=== PATIENT | male | born 1970 | race Two or more races ===

== ENCOUNTER 2017-09-17 13:34 | Outpatient (CLI) | END 2017-09-17 13:35 | disposition home or self-care (01) | LOC: LAB 13:34 | PROVIDERS: ATTEND Emergency Medicine | DX: J06.9 Acute upper respiratory infection, unspecified (principal); R68.89 Other general symptoms and signs | CPT/HCPCS: 87502; 87651 ==

== ENCOUNTER 2018-05-15 00:41 | Emergency (ER) ==
[2018-05-15 01:06] VITALS: BMI 29.7
--- NOTE | 2018-05-15 02:10 | ED.PDOC ---
General ED Provider: Dr. REDDY HEDRICK Chief Complaint: Cough Stated Complaint: Patient is a 47 year old male who comes to the ER with a 3 week history of productive cough. Time Seen by Physician: 00:30 Mode of Arrival: Walk-In Information Source: Patient Exam Limitations: No limitations [facility] and Triage Documentation Reviewed and Agree: Yes Does patient meet sepsis criteria?: No System Inflammatory Response Syndrome: Not Applicable Sepsis Protocol: For patient's 13 years and over: Temp is 96.8 and below OR 101 and greater Pulse >90 BPM Resp >20/minute Acutely Altered Mental Status Are patient's symptoms suggestive of a new infection, such as: -Pneumonia -Skin, Soft Tissue -Endocarditis -UTI -Bone, Joint Infection -Implantable Device -Acute Abdominal Infection -Wound Infection -Meningitis -Blood Stream Catheter Infection -Unknown Review of Systems - Review Of Systems Constitutional: Reports: Chills, Fever Eyes: Reports: No symptoms Ears, Nose, Mouth, Throat: Reports: No symptoms Respiratory: Reports: Cough Cardiac: Reports: No symptoms GI: Reports: No symptoms : Reports: No symptoms Musculoskeletal: Reports: No symptoms Skin: Reports: No symptoms Neurological: Reports: No symptoms Endocrine: Reports: No symptoms Hematologic/Lymphatic: Reports: No symptoms All Other Systems: Reviewed and Negative Past Medical History - Past Medical History Previously Healthy: Yes Endocrine: Reports: None Cardiovascular: Reports: None Respiratory: Reports: None Hematological: Reports: None Gastrointestinal: Reports: None Genitourinary: Reports: None Neuro/Psych: Reports: None Musculoskeletal: Reports: None Cancer: Reports: None - Surgical History General Surgical History: Reports: Appendectomy - Family History Family History: Reports: None - Social History Smoking Status: Never smoker Hx Substance Use: No Alcohol Screening: Occasionally - Immunizations Tetanus Shot up to Date: No (unsure) Physical Exam - Physical Exam Appearance: Ill-appearing Ill-appearing: Mild Eyes: TORIE, EOMI, Conjunctiva clear ENT: Ears normal, Nose normal, Oropharynx normal Respiratory: Airway patent, Breath sounds clear, Breath sounds equal, Respirations nonlabored Cardiovascular: RRR, Pulses normal, No rub, No murmur GI/: Soft, Nontender, No masses, Bowel sounds normal, No Organomegaly Musculoskeletal: Normal strength, ROM intact, No edema, No calf tenderness Skin: Warm, Dry, Normal color Neurological: Sensation intact, Motor intact, Reflexes intact, Cranial nerves intact, Alert, Oriented Psychiatric: Affect appropriate, Mood appropriate Interpretation - Radiology Interpretation Radiology Interpretation By: ED Physician Radiology Results: Negative Exam Interpreted: Portable CXR Critical Care Note - Critical Care Note Total Time (mins): 0 Course - Course Hematology/Chemistry: 05/15/18 01:10 05/15/18 01:10 Orders, Labs, Meds: Lab Review 05/15/18 05/15/18 01:10 01:10 WBC 6.58 RBC 4.97 Hgb 15.5 Hct 43.8 MCV 88.1 MCH 31.2 H MCHC 35.4 RDW Coeff of Black 12.4 Plt Count 134 L Immature Gran % (Auto) 0.9 Neut % (Auto) 64.7 Lymph % (Auto) 19.5 Harper % (Auto) 13.2 H Eos % (Auto) 1.2 Baso % (Auto) 0.5 Immature Gran # (Auto) 0.1 Neut # (Auto) 4.3 Lymph # (Auto) 1.3 Harper # (Auto) 0.9 Eos # (Auto) 0.1 Baso # (Auto) 0.0 Sodium 136.5 L Potassium 4.14 Chloride 100.2 Carbon Dioxide 27.0 Anion Gap 13.44 BUN 12.1 Creatinine 0.90 Estimated GFR (MDRD) 90.00 BUN/Creatinine Ratio 13.44 Glucose 105.6 Calcium 9.02 Total Bilirubin 0.59 AST 122.9 H ALT 116.9 H Alkaline Phosphatase 52.8 Total Creatine Kinase 149.3 CK-MB (CK-2) 0.462 CK-MB (CK-2) % 0.3000 Troponin I < 0.012 Total Protein 8.75 H Albumin 4.68 Globulin 4.07 Albumin/Globulin Ratio 1.14 Orders Category Date Time Status EKG-(ED ONLY) Stat CARDIO 05/15/18 00:57 Completed ED APPLY O2 .ONCE EMERGENCY 05/15/18 00:57 Active ED IV/MEDIPORT/POWERPORT .ONCE EMERGENCY 05/15/18 00:57 Active CBC W/ AUTO DIFF Stat LAB 05/15/18 01:10 Completed COMPREHENSIVE METABOLIC PANEL Stat LAB 05/15/18 01:10 Completed CREATINE KINASE Stat LAB 05/15/18 01:10 Completed TROPONIN I Stat LAB 05/15/18 01:10 Completed 0.9 % Sodium Chloride [Saline Flush] MEDS 05/15/18 00:57 Discontinued 1 syr IVF PRN PRN Azithromycin [Zithromax] MEDS 05/15/18 02:36 Discontinued 500 mg PO ONCE STA Ceftriaxone Sodium [Rocephin] MEDS 05/15/18 02:42 Discontinued 1 gm .ROUTE .STK-MED ONE Ceftriaxone Sodium [Rocephin] 1 gm MEDS 05/15/18 02:36 Discontinued 0.9 % Sodium Chloride [Sodium Chloride] 50 ml IV ONCE CHEST, 1V AP ONLY Stat RADS 05/15/18 00:57 Completed Medications Discontinued Medications Generic Name Dose Route Start Last Admin Trade Name Freq PRN Reason Stop Dose Admin Azithromycin 500 mg 05/15/18 02:36 05/15/18 02:51 Zithromax PO 05/15/18 02:37 500 mg ONCE STA Administration Ceftriaxone Sodium 1 gm/ 50 mls @ 75 mls/hr 05/15/18 02:36 05/15/18 02:54 Sodium Chloride IV 05/15/18 03:15 75 mls/hr ONCE STA Administration Sodium Chloride 1 syr 05/15/18 00:57 Saline Flush IVF PRN PRN To flush IV Vital Signs: Temp Pulse Resp BP Pulse Ox 05/15/18 03:48 98.9 F 81 21 123/80 98 05/15/18 02:59 98.9 F 82 18 132/83 97 05/15/18 00:41 101.7 F H 103 H 20 154/101 H 96 Departure - Departure Time of Disposition: 04:00 Disposition: HOME SELF-CARE Discharge Problem: Viral URI with cough Acute bronchitis Qualifiers: Bronchitis organism: other organism Qualified Code(s): J20.8 - Acute bronchitis due to other specified organisms Instructions: Upper Respiratory Infection (ED) Condition: Fair Pt referred to PMD for follow-up: Yes IPMP verified?: No Additional Instructions: Take medications as prescribed Follow up with PCP in 3 days Prescriptions: Azithromycin [Zithromax] 250 mg PO DIRECTED #4 tablet Allergies/Adverse Reactions: Allergies No Known Allergies Allergy (Verified 05/15/18 00:51) Home Medications: Ambulatory Orders Azithromycin [Zithromax] 250 mg PO DIRECTED #4 tablet 05/15/18 Disposition Discussed With: Patient
[2018-05-15] MEDS ORDERED: ROCEPHIN 1 GM in SODIUM CHLORIDE 50 ML IV STA (02:36)
[2018-05-15] MEDS ORDERED: ZITHROMAX PO STA (02:36)
[2018-05-15] MEDS ORDERED: ROCEPHIN ONE (02:42)
[2018-05-15 03:00] VITALS: TEMP 98.9
[2018-05-15 03:49] VITALS: BP 123/80
--- NOTE | 2018-05-15 06:07 | DI ---
EXAM: AP single view of the chest. HISTORY: Cough. FINDINGS: The bones are unremarkable. The cardiac silhouette and pulmonary vasculature are within no rmal limits. The costophrenic angles are clear. No infiltrate or consolidation. Impression: No acute cardiopulmonary disease.
== END 2018-05-15 03:54 | disposition home or self-care (01) ==
LOC: ED 00:41
DX: J20.9 Acute bronchitis, unspecified (principal); J06.9 Acute upper respiratory infection, unspecified
CPT/HCPCS: 36415; 80053; 82550; 82553; 84484; 85025; 93005; 93010; 96365; 99284